=== PATIENT | female | born 1940 | race Caucasian/White ===

== ENCOUNTER 2020-08-16 14:41 | Observation (INO) ==
[2020-08-16] MEDS ORDERED: 0.9 % Sodium Chloride 1,000 ML IV ONE (15:52)
[2020-08-16] MEDS ORDERED: FLUoxetine 20 MG CAPSULE PO SCH (21:00)
[2020-08-16] MEDS ORDERED: (Doxepin Hcl 10 MG Capsule) PO SCH (21:00)
[2020-08-16] MEDS ORDERED: *HR* LORazepam 1 MG TABLET PO SCH (21:00)
[2020-08-16] MEDS: Gabapentin 300 MG CAPSULE PO SCH (21:26)
[2020-08-16] MEDS: Acetaminophen 325 MG TABLET PO PRN (22:11)
[2020-08-16] MEDS: Acyclovir 200 MG CAPSULE PO SCH (22:14)
[2020-08-17] MEDS: *HR* LORazepam 0.5 MG TABLET PO SCH ×2 (00:08→20:07)
[2020-08-17 05:23] LABS: Basophils % 0.7 %; Eosinophils # 0.1 K/mcL (0.0-0.6); Hematocrit 35.1 % (35.3-44.9); Hemoglobin 11.4 g/dL (11.5-15.4); Immature Granulocytes % 0.2 % (0-4); Lymphocytes # 1.7 K/mcL (0.6-4.6); Lymphocytes % 36.7 %; Mean Corpuscular HGB Conc 32.5 g/dL (31.6-35.5); Mean Corpuscular Hemoglobin 31.7 pg (28.0-33.3); Mean Corpuscular Volume 97.5 fL (83.0-100.0); Mean Platelet Volume 9.6 fL (9.4-12.4); Monocytes # 0.5 K/mcL (0.0-1.3); Monocytes % 10.2 %; Neutrophils # 2.3 K/mcL (1.6-8.9); Platelet Count 216 K/mcL (140-400); Red Cell Distribution Width 13.4 % (11.5-14.5); Segmented Neutrophils % 50.2 %; White Blood Count 4.6 K/mcL (4.3-11.1)
[2020-08-17 05:26] LABS: Bilirubin,Urine Negative (Negative); Blood,Urine Trace-intact (Negative); Clarity,Urine Slightly Cloudy (Clear); Glucose,Urine (UA) Normal (Normal); Ketones,Urine Negative (Negative); Leukocyte Esterase,Urine Negative (Negative); Nitrite,Urine Negative (Negative); PH,Urine 6.5 pH Units (5.0-8.0); Protein,Urine 100 mg/dL (Neg-Trace); Urobilinogen,Urine Normal (Normal)
[2020-08-17 05:30] LABS: Amorphous Sediment,Urine Few per hpf (None-Few); Color,Urine Yellow (Yellow); Squamous Epithelial Cell,Urine Few per hpf (None-Few)
[2020-08-17 05:38] LABS: Calcium 9.3 mg/dL (8.6-10.3); Magnesium 1.9 mg/dL (1.6-2.6); Potassium 4.1 mEq/L (3.5-5.1)
[2020-08-17] MEDS: Acyclovir 200 MG CAPSULE PO SCH ×2 (09:24→20:07)
[2020-08-17] MEDS: Acetaminophen 325 MG TABLET PO PRN (09:24)
[2020-08-17] MEDS: Multivit/Ca/Min/Fe/FA 1 TAB TABLET PO SCH (09:25)
[2020-08-17] MEDS: Gabapentin 300 MG CAPSULE PO SCH ×2 (09:25→20:07)
[2020-08-17] MEDS: Aspirin 325 MG TABLET PO SCH (09:25)
[2020-08-17] MEDS: *HR* LORazepam 1 MG TABLET PO SCH (09:25)
[2020-08-17] MEDS: FLUoxetine 20 MG CAPSULE PO SCH (09:25)
[2020-08-17] MEDS ORDERED: hydrALAZINE 10 MG TABLET PO ONE (09:55)
[2020-08-17] MEDS ORDERED: hydrALAZINE 10 MG TABLET PO PRN (13:55)
[2020-08-17] MEDS ORDERED: CloNIDine Patch 0.1 MG PATCH (WEEKLY) TD SCH (14:00)
[2020-08-18] MEDS: Acetaminophen 325 MG TABLET PO PRN ×2 (01:27→22:17)
[2020-08-18 04:56] LABS: Hematocrit 32.2 % (35.3-44.9); Hemoglobin 10.7 g/dL (11.5-15.4); Mean Corpuscular HGB Conc 33.2 g/dL (31.6-35.5); Mean Corpuscular Hemoglobin 32.2 pg (28.0-33.3); Mean Platelet Volume 9.4 fL (9.4-12.4); Platelet Count 187 K/mcL (140-400); Red Blood Count 3.32 M/mcL (3.82-4.97); Red Cell Distribution Width 13.2 % (11.5-14.5); White Blood Count 4.8 K/mcL (4.3-11.1)
[2020-08-18 05:20] LABS: Albumin 3.6 g/dL (3.5-5.7); Albumin/Globulin Ratio 1.6 (1.1-2.2); Bilirubin,Total 0.3 mg/dL (0.3-1.0); Calcium 8.8 mg/dL (8.6-10.3); Globulin 2.2 g/dL (2.4-3.5); Magnesium 1.8 mg/dL (1.6-2.6); Potassium 3.9 mEq/L (3.5-5.1); Total Protein 5.8 g/dL (6.4-8.9)
[2020-08-18] MEDS: Aspirin 325 MG TABLET PO SCH (08:32)
[2020-08-18] MEDS: Acyclovir 200 MG CAPSULE PO SCH ×2 (08:32→22:12)
[2020-08-18] MEDS: FLUoxetine 20 MG CAPSULE PO SCH (08:32)
[2020-08-18] MEDS: Gabapentin 300 MG CAPSULE PO SCH ×2 (08:33→22:11)
[2020-08-18] MEDS: *HR* LORazepam 1 MG TABLET PO SCH (08:33)
[2020-08-18] MEDS: Multivit/Ca/Min/Fe/FA 1 TAB TABLET PO SCH (08:33)
[2020-08-18] MEDS: hydrALAZINE 10 MG TABLET PO SCH (17:41)
[2020-08-18] MEDS: *HR* LORazepam 0.5 MG TABLET PO SCH (22:11)
[2020-08-19] MEDS: hydrALAZINE 10 MG TABLET PO SCH ×2 (00:24→08:18)
[2020-08-19] MEDS: Acetaminophen 325 MG TABLET PO PRN (05:45)
[2020-08-19] MEDS: Multivit/Ca/Min/Fe/FA 1 TAB TABLET PO SCH (08:18)
[2020-08-19] MEDS: Gabapentin 300 MG CAPSULE PO SCH (08:18)
[2020-08-19] MEDS: FLUoxetine 20 MG CAPSULE PO SCH (08:18)
[2020-08-19] MEDS: Aspirin 325 MG TABLET PO SCH (08:18)
[2020-08-19] MEDS: *HR* LORazepam 1 MG TABLET PO SCH (08:19)
[2020-08-19] MEDS: Acyclovir 200 MG CAPSULE PO SCH (08:19)
[2020-08-19 13:04] VITALS: BP 131/76
== END 2020-08-19 15:35 | disposition other institution (70) ==
LOC: EMEROOGRE 14:41 → INPGRE 14:41
PROVIDERS: ADMIT Family Medicine; ATTEND Family Medicine

== ENCOUNTER 2020-08-19 13:16 | Inpatient (IN) ==
[2020-08-19] MEDS ORDERED: FLUoxetine 20 MG CAPSULE PO SCH (21:00)
[2020-08-19] MEDS: Acetaminophen 325 MG TABLET PO PRN (22:17)
[2020-08-19] MEDS: Gabapentin 300 MG CAPSULE PO SCH (22:18)
[2020-08-19] MEDS: *HR* LORazepam 1 MG TABLET PO SCH (22:19)
[2020-08-19] MEDS: (Doxepin Hcl 10 MG Capsule) PO SCH (22:58)
[2020-08-19] MEDS: hydrALAZINE 10 MG TABLET PO SCH (23:05)
[2020-08-19] MEDS: Acyclovir 200 MG CAPSULE PO SCH (23:06)
[2020-08-20 05:01] LABS: Basophils % 0.7 %; Eosinophils # 0.1 K/mcL (0.0-0.6); Eosinophils % 2.5 %; Hematocrit 32.1 % (35.3-44.9); Hemoglobin 10.6 g/dL (11.5-15.4); Immature Granulocytes % 0.2 % (0-4); Lymphocytes # 1.4 K/mcL (0.6-4.6); Lymphocytes % 32.6 %; Mean Corpuscular Hemoglobin 31.9 pg (28.0-33.3); Mean Corpuscular Volume 96.7 fL (83.0-100.0); Mean Platelet Volume 9.6 fL (9.4-12.4); Monocytes # 0.5 K/mcL (0.0-1.3); Monocytes % 11.1 %; Neutrophils # 2.3 K/mcL (1.6-8.9); Platelet Count 206 K/mcL (140-400); Red Blood Count 3.32 M/mcL (3.82-4.97); Red Cell Distribution Width 13.4 % (11.5-14.5); Segmented Neutrophils % 52.9 %; White Blood Count 4.3 K/mcL (4.3-11.1)
[2020-08-20 05:20] LABS: Potassium 3.8 mEq/L (3.5-5.1)
[2020-08-20] MEDS: hydrALAZINE 10 MG TABLET PO SCH ×3 (06:36→20:45)
[2020-08-20] MEDS: Acetaminophen 325 MG TABLET PO PRN ×2 (06:37→16:42)
[2020-08-20] MEDS: *HR* Enoxaparin 40 MG/0.4 ML SYRINGE SQ SCH (06:38)
[2020-08-20] MEDS: Multivit/Ca/Min/Fe/FA 1 TAB TABLET PO SCH (09:59)
[2020-08-20] MEDS: *HR* LORazepam 1 MG TABLET PO SCH ×2 (09:59→20:49)
[2020-08-20] MEDS: Acyclovir 200 MG CAPSULE PO SCH ×2 (09:59→20:48)
[2020-08-20] MEDS: FLUoxetine 20 MG CAPSULE PO SCH (09:59)
[2020-08-20] MEDS: Gabapentin 300 MG CAPSULE PO SCH ×2 (09:59→20:45)
[2020-08-20] MEDS: Aspirin 325 MG TABLET PO SCH (09:59)
[2020-08-20] MEDS: (Doxepin Hcl 10 MG Capsule) PO SCH (20:51)
[2020-08-21] MEDS: Acetaminophen 325 MG TABLET PO PRN ×2 (06:40→17:01)
[2020-08-21] MEDS: hydrALAZINE 10 MG TABLET PO SCH ×3 (06:40→20:13)
[2020-08-21] MEDS: *HR* Enoxaparin 40 MG/0.4 ML SYRINGE SQ SCH (06:41)
[2020-08-21] MEDS: FLUoxetine 20 MG CAPSULE PO SCH (09:25)
[2020-08-21] MEDS: Gabapentin 300 MG CAPSULE PO SCH ×2 (09:25→20:04)
[2020-08-21] MEDS: Acyclovir 200 MG CAPSULE PO SCH ×2 (09:26→20:03)
[2020-08-21] MEDS: *HR* LORazepam 1 MG TABLET PO SCH ×2 (09:26→22:07)
[2020-08-21] MEDS: Aspirin 325 MG TABLET PO SCH (09:26)
[2020-08-21] MEDS: Multivit/Ca/Min/Fe/FA 1 TAB TABLET PO SCH (09:26)
[2020-08-21] MEDS: (Doxepin Hcl 10 MG Capsule) PO SCH (22:07)
[2020-08-22] MEDS: hydrALAZINE 10 MG TABLET PO SCH ×3 (03:43→21:50)
[2020-08-22] MEDS: *HR* Enoxaparin 30 MG/0.3 ML SYRINGE SQ SCH (06:16)
[2020-08-22] MEDS: FLUoxetine 20 MG CAPSULE PO SCH (09:37)
[2020-08-22] MEDS: Acetaminophen 325 MG TABLET PO PRN ×2 (09:37→21:53)
[2020-08-22] MEDS: Gabapentin 300 MG CAPSULE PO SCH ×2 (09:37→21:51)
[2020-08-22] MEDS: Aspirin 325 MG TABLET PO SCH (09:37)
[2020-08-22] MEDS: *HR* LORazepam 1 MG TABLET PO SCH ×2 (09:37→21:51)
[2020-08-22] MEDS: Multivit/Ca/Min/Fe/FA 1 TAB TABLET PO SCH (09:38)
[2020-08-22] MEDS: Acyclovir 200 MG CAPSULE PO SCH ×2 (09:38→21:51)
[2020-08-23] MEDS: hydrALAZINE 10 MG TABLET PO SCH ×3 (05:00→17:27)
[2020-08-23 05:01] LABS: Hematocrit 32.4 % (35.3-44.9); Hemoglobin 10.6 g/dL (11.5-15.4); Mean Corpuscular HGB Conc 32.7 g/dL (31.6-35.5); Mean Corpuscular Hemoglobin 31.7 pg (28.0-33.3); Mean Platelet Volume 9.6 fL (9.4-12.4); Platelet Count 205 K/mcL (140-400); Red Blood Count 3.34 M/mcL (3.82-4.97); Red Cell Distribution Width 13.7 % (11.5-14.5); White Blood Count 4.1 K/mcL (4.3-11.1)
[2020-08-23] MEDS: *HR* Enoxaparin 30 MG/0.3 ML SYRINGE SQ SCH (05:01)
[2020-08-23 05:15] LABS: Albumin 3.8 g/dL (3.5-5.7); Albumin/Globulin Ratio 1.8 (1.1-2.2); Bilirubin,Total 0.3 mg/dL (0.3-1.0); Calcium 9.1 mg/dL (8.6-10.3); Globulin 2.1 g/dL (2.4-3.5); Magnesium 2.1 mg/dL (1.6-2.6); Potassium 4.3 mEq/L (3.5-5.1); Total Protein 5.9 g/dL (6.4-8.9)
[2020-08-23] MEDS: *HR* LORazepam 1 MG TABLET PO SCH ×2 (09:49→21:24)
[2020-08-23] MEDS: Multivit/Ca/Min/Fe/FA 1 TAB TABLET PO SCH (09:49)
[2020-08-23] MEDS: FLUoxetine 20 MG CAPSULE PO SCH (09:50)
[2020-08-23] MEDS: Gabapentin 300 MG CAPSULE PO SCH ×2 (09:50→21:25)
[2020-08-23] MEDS: Aspirin 325 MG TABLET PO SCH (09:50)
[2020-08-23] MEDS: Acetaminophen 325 MG TABLET PO PRN ×2 (09:50→21:28)
[2020-08-23] MEDS: Acyclovir 200 MG CAPSULE PO SCH ×2 (09:50→21:24)
[2020-08-24] MEDS: hydrALAZINE 25 MG TABLET PO SCH ×2 (00:34→09:41)
[2020-08-24] MEDS ORDERED: *HR* Enoxaparin 40 MG/0.4 ML SYRINGE SQ SCH (07:00)
[2020-08-24 08:21] VITALS: BP 181/76
[2020-08-24] MEDS: Gabapentin 300 MG CAPSULE PO SCH (09:41)
[2020-08-24] MEDS: Multivit/Ca/Min/Fe/FA 1 TAB TABLET PO SCH (09:41)
[2020-08-24] MEDS: Acyclovir 200 MG CAPSULE PO SCH (09:41)
[2020-08-24] MEDS: FLUoxetine 20 MG CAPSULE PO SCH (09:41)
[2020-08-24] MEDS: Aspirin 325 MG TABLET PO SCH (09:41)
[2020-08-24] MEDS: *HR* LORazepam 1 MG TABLET PO SCH (09:41)
[2020-08-24] MEDS: hydrALAZINE 10 MG TABLET PO SCH (11:52)
== END 2020-08-24 14:03 | disposition home health service (06) | DRG 945 ==
LOC: INPGRE 15:36
PROVIDERS: ADMIT Family Medicine; ATTEND Family Medicine

== ENCOUNTER 2021-01-08 14:02 | Observation (INO) ==
[2021-01-08 14:38] LABS: Basophils % 0.5 %; Eosinophils % 0.5 %; Hematocrit 31.7 % (35.3-44.9); Hemoglobin 10.1 g/dL (11.5-15.4); Immature Granulocytes % 0.3 % (0-4); Lymphocytes # 0.9 K/mcL (0.6-4.6); Lymphocytes % 14.6 %; Mean Corpuscular HGB Conc 31.9 g/dL (31.6-35.5); Mean Corpuscular Hemoglobin 33.1 pg (28.0-33.3); Mean Corpuscular Volume 103.9 fL (83.0-100.0); Mean Platelet Volume 9.5 fL (9.4-12.4); Monocytes # 0.7 K/mcL (0.0-1.3); Monocytes % 10.9 %; Neutrophils # 4.4 K/mcL (1.6-8.9); Platelet Count 191 K/mcL (140-400); Red Blood Count 3.05 M/mcL (3.82-4.97); Red Cell Distribution Width 14.5 % (11.5-14.5); Segmented Neutrophils % 73.2 %
[2021-01-08 14:55] LABS: Calcium 9.2 mg/dL (8.6-10.3)
[2021-01-08] MEDS ORDERED: Ondansetron 4 MG/2 ML VIAL IVP PRN (15:24)
[2021-01-08] MEDS ORDERED: Ondansetron ODT 4 MG TAB.RAPDIS SL PRN (15:24)
[2021-01-08] MEDS ORDERED: MOM Conc 10 ML UD.LIQ PO PRN (15:24)
[2021-01-08] MEDS ORDERED: Mag Hydrox/Al Hydrox/Simeth 30 ML UDC PO PRN (15:24)
[2021-01-08] MEDS ORDERED: Naloxone 0.4 MG/ML INJ IVP PRN (15:24)
[2021-01-08] MEDS ORDERED: *HR* LORazepam 0.5 MG TABLET PO PRN (15:29)
[2021-01-08] MEDS ORDERED: Acetaminophen 325 MG TABLET PO PRN (15:29)
[2021-01-08] MEDS ORDERED: *HR* OxyCODONE/APAP 5/325 TABLET PO SCH (16:00)
[2021-01-08 16:14] LABS: INR 1.1
[2021-01-08] MEDS ORDERED: *HR* OxyCODONE/APAP 7.5/325 TABLET PO PRN (16:18)
[2021-01-08] MEDS ORDERED: tiZANidine 4 MG TABLET PO PRN (16:24)
[2021-01-08 16:51] LABS: Bilirubin,Urine Negative (Negative); Blood,Urine Negative (Negative); Clarity,Urine Clear (Clear); Color,Urine Yellow (Yellow); Glucose,Urine (UA) Normal (Normal); Ketones,Urine 40 mg/dL (Negative); Leukocyte Esterase,Urine Negative (Negative); Nitrite,Urine Negative (Negative); Protein,Urine >=300 mg/dL (Neg-Trace); Specific Gravity,Urine 1.025 (1.010-1.025); Urobilinogen,Urine Normal (Normal)
[2021-01-08 16:54] LABS: Squamous Epithelial Cell,Urine Few per hpf (None-Few)
[2021-01-08] MEDS: *HR* OxyCODONE/APAP 5/325 TABLET PO PRN (17:51)
[2021-01-08] MEDS: hydrALAZINE 25 MG TABLET PO SCH ×2 (17:51→21:24)
[2021-01-08] MEDS ORDERED: Melatonin 3 MG TABLET PO PRN (21:00)
[2021-01-08] MEDS: traZODone 50 MG TABLET PO SCH (21:23)
[2021-01-08] MEDS: FLUoxetine 20 MG CAPSULE PO SCH (21:23)
[2021-01-08] MEDS: Gabapentin 300 MG CAPSULE PO SCH (21:23)
[2021-01-08] MEDS: *HR* LORazepam 0.5 MG TABLET PO SCH (21:24)
[2021-01-08] MEDS: Acyclovir 200 MG CAPSULE PO SCH (21:24)
[2021-01-09] MEDS: *HR* OxyCODONE/APAP 5/325 TABLET PO PRN ×3 (05:02→19:34)
[2021-01-09] MEDS: *HR* Enoxaparin 40 MG/0.4 ML SYRINGE SQ SCH (05:02)
[2021-01-09 06:13] LABS: Hematocrit 30.1 % (35.3-44.9); Hemoglobin 9.6 g/dL (11.5-15.4); Mean Corpuscular HGB Conc 31.9 g/dL (31.6-35.5); Mean Corpuscular Hemoglobin 32.3 pg (28.0-33.3); Mean Corpuscular Volume 101.3 fL (83.0-100.0); Mean Platelet Volume 9.6 fL (9.4-12.4); Platelet Count 199 K/mcL (140-400); Red Blood Count 2.97 M/mcL (3.82-4.97); Red Cell Distribution Width 14.2 % (11.5-14.5); White Blood Count 4.8 K/mcL (4.3-11.1)
[2021-01-09 06:35] LABS: Albumin 3.3 g/dL (3.5-5.7); Albumin/Globulin Ratio 1.2 (1.1-2.2); Bilirubin,Total 0.4 mg/dL (0.3-1.0); Calcium 8.8 mg/dL (8.6-10.3); Globulin 2.7 g/dL (2.4-3.5); Magnesium 1.8 mg/dL (1.6-2.6); Phosphorous 3.2 mg/dL (2.7-4.5); Potassium 4.2 mEq/L (3.5-5.1)
[2021-01-09] MEDS: *HR* LORazepam 0.5 MG TABLET PO SCH ×3 (08:00→19:34)
[2021-01-09] MEDS: FLUoxetine 20 MG CAPSULE PO SCH ×2 (08:00→19:34)
[2021-01-09] MEDS: Acyclovir 200 MG CAPSULE PO SCH ×2 (08:00→19:35)
[2021-01-09] MEDS: Aspirin 81 MG TAB.CHEW PO SCH (08:00)
[2021-01-09] MEDS: Multivit/Ca/Min/Fe/FA 1 TAB TABLET PO SCH (08:00)
[2021-01-09] MEDS: hydrALAZINE 25 MG TABLET PO SCH ×4 (08:00→19:34)
[2021-01-09] MEDS: Gabapentin 300 MG CAPSULE PO SCH ×2 (08:00→19:33)
[2021-01-09] MEDS: Loratadine 10 MG TABLET PO SCH (08:00)
[2021-01-09] MEDS: traZODone 50 MG TABLET PO SCH (19:34)
[2021-01-10] MEDS: *HR* Enoxaparin 40 MG/0.4 ML SYRINGE SQ SCH (04:48)
[2021-01-10] MEDS: *HR* OxyCODONE/APAP 5/325 TABLET PO PRN ×2 (04:50→09:32)
[2021-01-10] MEDS: Multivit/Ca/Min/Fe/FA 1 TAB TABLET PO SCH (09:32)
[2021-01-10] MEDS: Gabapentin 300 MG CAPSULE PO SCH ×2 (09:32→22:06)
[2021-01-10] MEDS: hydrALAZINE 25 MG TABLET PO SCH ×4 (09:32→22:06)
[2021-01-10] MEDS: *HR* LORazepam 0.5 MG TABLET PO SCH ×3 (09:32→22:08)
[2021-01-10] MEDS: Acyclovir 200 MG CAPSULE PO SCH ×2 (09:32→22:06)
[2021-01-10] MEDS: Aspirin 81 MG TAB.CHEW PO SCH (09:33)
[2021-01-10] MEDS: FLUoxetine 20 MG CAPSULE PO SCH ×2 (09:33→22:07)
[2021-01-10] MEDS: Loratadine 10 MG TABLET PO SCH (09:33)
[2021-01-10] MEDS: Acetaminophen 325 MG TABLET PO PRN (17:04)
[2021-01-10] MEDS: traZODone 50 MG TABLET PO SCH (22:08)
[2021-01-11] MEDS: Acetaminophen 325 MG TABLET PO PRN (04:16)
[2021-01-11] MEDS: *HR* Enoxaparin 40 MG/0.4 ML SYRINGE SQ SCH (04:18)
[2021-01-11] MEDS: hydrALAZINE 25 MG TABLET PO SCH ×4 (08:45→19:59)
[2021-01-11] MEDS: *HR* LORazepam 0.5 MG TABLET PO SCH ×3 (08:45→20:00)
[2021-01-11] MEDS: FLUoxetine 20 MG CAPSULE PO SCH ×2 (08:45→19:59)
[2021-01-11] MEDS: Multivit/Ca/Min/Fe/FA 1 TAB TABLET PO SCH (08:45)
[2021-01-11] MEDS: Gabapentin 300 MG CAPSULE PO SCH ×2 (08:45→19:59)
[2021-01-11] MEDS: Acyclovir 200 MG CAPSULE PO SCH ×2 (08:45→19:59)
[2021-01-11] MEDS: Aspirin 81 MG TAB.CHEW PO SCH (08:46)
[2021-01-11] MEDS: Loratadine 10 MG TABLET PO SCH (08:46)
[2021-01-11] MEDS: *HR* OxyCODONE/APAP 5/325 TABLET PO PRN ×2 (14:12→19:59)
[2021-01-11] MEDS: traZODone 50 MG TABLET PO SCH (19:59)
[2021-01-12] MEDS: *HR* Enoxaparin 40 MG/0.4 ML SYRINGE SQ SCH (06:07)
[2021-01-12] MEDS: *HR* OxyCODONE/APAP 5/325 TABLET PO PRN (06:10)
[2021-01-12] MEDS: FLUoxetine 20 MG CAPSULE PO SCH (08:36)
[2021-01-12] MEDS: Acyclovir 200 MG CAPSULE PO SCH (08:36)
[2021-01-12] MEDS: Gabapentin 300 MG CAPSULE PO SCH (08:36)
[2021-01-12] MEDS: Loratadine 10 MG TABLET PO SCH (08:36)
[2021-01-12] MEDS: Multivit/Ca/Min/Fe/FA 1 TAB TABLET PO SCH (08:36)
[2021-01-12] MEDS: Aspirin 81 MG TAB.CHEW PO SCH (08:36)
[2021-01-12] MEDS: hydrALAZINE 25 MG TABLET PO SCH ×2 (08:37→13:24)
[2021-01-12] MEDS: *HR* LORazepam 0.5 MG TABLET PO SCH ×2 (08:37→14:53)
[2021-01-12 12:30] VITALS: BP 94/62
== END 2021-01-12 15:48 | disposition other institution (70) ==
LOC: INPGRE 14:02 → EMEROOGRE 14:02 → INPGRE 15:11
PROVIDERS: ADMIT Family Medicine; ATTEND Family Medicine

== ENCOUNTER 2021-01-12 14:47 | Inpatient (IN) ==
[2021-01-12] MEDS ORDERED: Mag Hydrox/Al Hydrox/Simeth 30 ML UDC PO PRN (16:40)
[2021-01-12] MEDS ORDERED: Naloxone 0.4 MG/ML INJ IVP PRN (16:42)
[2021-01-12] MEDS ORDERED: MOM Conc 10 ML UD.LIQ PO PRN (16:42)
[2021-01-12] MEDS ORDERED: Ondansetron ODT 4 MG TAB.RAPDIS SL PRN (16:43)
[2021-01-12] MEDS ORDERED: Ondansetron 4 MG/2 ML VIAL IVP PRN (16:43)
[2021-01-12] MEDS ORDERED: *HR* OxyCODONE/APAP 7.5/325 TABLET PO PRN (16:44)
[2021-01-12] MEDS: *HR* OxyCODONE/APAP 5/325 TABLET PO PRN (17:15)
[2021-01-12] MEDS: hydrALAZINE 25 MG TABLET PO SCH ×2 (17:20→21:18)
[2021-01-12] MEDS: Acyclovir 200 MG CAPSULE PO SCH (21:18)
[2021-01-12] MEDS: Gabapentin 300 MG CAPSULE PO SCH (21:18)
[2021-01-12] MEDS: traZODone 50 MG TABLET PO SCH (21:18)
[2021-01-12] MEDS: FLUoxetine 20 MG CAPSULE PO SCH (21:18)
[2021-01-12] MEDS: *HR* LORazepam 0.5 MG TABLET PO SCH (21:19)
[2021-01-13] MEDS: *HR* Enoxaparin 40 MG/0.4 ML SYRINGE SQ SCH (04:34)
[2021-01-13] MEDS: *HR* OxyCODONE/APAP 5/325 TABLET PO PRN ×2 (04:34→18:09)
[2021-01-13] MEDS: Acyclovir 200 MG CAPSULE PO SCH ×2 (07:48→20:25)
[2021-01-13] MEDS: Acetaminophen 325 MG TABLET PO PRN ×2 (07:48→20:22)
[2021-01-13] MEDS: *HR* LORazepam 0.5 MG TABLET PO SCH ×2 (07:48→20:22)
[2021-01-13] MEDS: Multivit/Ca/Min/Fe/FA 1 TAB TABLET PO SCH (07:48)
[2021-01-13] MEDS: FLUoxetine 20 MG CAPSULE PO SCH ×2 (07:48→20:20)
[2021-01-13] MEDS: hydrALAZINE 25 MG TABLET PO SCH ×4 (07:48→20:22)
[2021-01-13] MEDS: Gabapentin 300 MG CAPSULE PO SCH ×2 (07:48→20:20)
[2021-01-13] MEDS: Aspirin 81 MG TAB.CHEW PO SCH (08:53)
[2021-01-13] MEDS: Melatonin 3 MG TABLET PO PRN (20:21)
[2021-01-13] MEDS: traZODone 50 MG TABLET PO SCH (20:21)
[2021-01-14] MEDS: *HR* Enoxaparin 40 MG/0.4 ML SYRINGE SQ SCH (05:04)
[2021-01-14] MEDS: *HR* LORazepam 0.5 MG TABLET PO SCH ×2 (07:45→20:27)
[2021-01-14] MEDS: FLUoxetine 20 MG CAPSULE PO SCH ×2 (07:45→20:27)
[2021-01-14] MEDS: Multivit/Ca/Min/Fe/FA 1 TAB TABLET PO SCH (07:45)
[2021-01-14] MEDS: Acyclovir 200 MG CAPSULE PO SCH ×2 (07:45→20:27)
[2021-01-14] MEDS: Aspirin 81 MG TAB.CHEW PO SCH (07:45)
[2021-01-14] MEDS: hydrALAZINE 25 MG TABLET PO SCH ×4 (07:45→20:27)
[2021-01-14] MEDS: Gabapentin 300 MG CAPSULE PO SCH ×2 (07:45→20:27)
[2021-01-14] MEDS: Acetaminophen 325 MG TABLET PO PRN ×2 (07:54→14:16)
[2021-01-14] MEDS: *HR* OxyCODONE/APAP 5/325 TABLET PO PRN ×2 (16:44→22:56)
[2021-01-14] MEDS: traZODone 50 MG TABLET PO SCH (20:27)
[2021-01-14] MEDS: Melatonin 3 MG TABLET PO PRN (20:28)
[2021-01-15] MEDS: tiZANidine 4 MG TABLET PO PRN ×2 (00:33→05:46)
[2021-01-15] MEDS: *HR* Enoxaparin 40 MG/0.4 ML SYRINGE SQ SCH (05:43)
[2021-01-15 06:07] LABS: Basophils % 0.8 %; Eosinophils # 0.1 K/mcL (0.0-0.6); Eosinophils % 3.2 %; Hematocrit 26.8 % (35.3-44.9); Hemoglobin 8.4 g/dL (11.5-15.4); Immature Granulocytes % 0.3 % (0-4); Lymphocytes # 1.2 K/mcL (0.6-4.6); Lymphocytes % 31.7 %; Mean Corpuscular HGB Conc 31.3 g/dL (31.6-35.5); Mean Corpuscular Hemoglobin 32.4 pg (28.0-33.3); Mean Corpuscular Volume 103.5 fL (83.0-100.0); Mean Platelet Volume 9.6 fL (9.4-12.4); Monocytes # 0.5 K/mcL (0.0-1.3); Monocytes % 13.8 %; Neutrophils # 1.9 K/mcL (1.6-8.9); Platelet Count 262 K/mcL (140-400); Red Blood Count 2.59 M/mcL (3.82-4.97); Red Cell Distribution Width 13.7 % (11.5-14.5); Segmented Neutrophils % 50.2 %; White Blood Count 3.8 K/mcL (4.3-11.1)
[2021-01-15 06:30] LABS: Potassium 4.7 mEq/L (3.5-5.1)
[2021-01-15] MEDS: *HR* LORazepam 0.5 MG TABLET PO SCH ×2 (08:01→21:52)
[2021-01-15] MEDS: Aspirin 81 MG TAB.CHEW PO SCH (08:01)
[2021-01-15] MEDS: FLUoxetine 20 MG CAPSULE PO SCH ×2 (08:01→21:55)
[2021-01-15] MEDS: hydrALAZINE 25 MG TABLET PO SCH ×4 (08:02→21:54)
[2021-01-15] MEDS: Multivit/Ca/Min/Fe/FA 1 TAB TABLET PO SCH (08:02)
[2021-01-15] MEDS: Gabapentin 300 MG CAPSULE PO SCH ×2 (08:02→21:55)
[2021-01-15] MEDS: Acyclovir 200 MG CAPSULE PO SCH ×2 (08:02→21:56)
[2021-01-15] MEDS: *HR* OxyCODONE/APAP 5/325 TABLET PO PRN (10:20)
[2021-01-15] MEDS: Acetaminophen 325 MG TABLET PO PRN ×2 (15:32→22:00)
[2021-01-15] MEDS: traZODone 50 MG TABLET PO SCH (21:56)
[2021-01-15] MEDS: Melatonin 3 MG TABLET PO PRN (22:01)
[2021-01-16] MEDS: *HR* Enoxaparin 40 MG/0.4 ML SYRINGE SQ SCH (05:30)
[2021-01-16 05:50] LABS: Basophils % 0.8 %; Eosinophils # 0.1 K/mcL (0.0-0.6); Eosinophils % 3.9 %; Hematocrit 30.9 % (35.3-44.9); Hemoglobin 9.5 g/dL (11.5-15.4); Immature Granulocytes % 0.3 % (0-4); Lymphocytes # 1.1 K/mcL (0.6-4.6); Lymphocytes % 31.1 %; Mean Corpuscular HGB Conc 30.7 g/dL (31.6-35.5); Mean Corpuscular Hemoglobin 31.9 pg (28.0-33.3); Mean Corpuscular Volume 103.7 fL (83.0-100.0); Mean Platelet Volume 9.3 fL (9.4-12.4); Monocytes # 0.4 K/mcL (0.0-1.3); Monocytes % 12.3 %; Platelet Count 273 K/mcL (140-400); Red Blood Count 2.98 M/mcL (3.82-4.97); Red Cell Distribution Width 13.7 % (11.5-14.5); Segmented Neutrophils % 51.6 %; White Blood Count 3.6 K/mcL (4.3-11.1)
[2021-01-16 05:53] LABS: Neutrophils # 1.9 K/mcL (1.6-8.9)
[2021-01-16] MEDS: Aspirin 81 MG TAB.CHEW PO SCH (08:15)
[2021-01-16] MEDS: hydrALAZINE 25 MG TABLET PO SCH ×4 (08:15→20:20)
[2021-01-16] MEDS: *HR* LORazepam 0.5 MG TABLET PO SCH ×2 (08:15→20:19)
[2021-01-16] MEDS: *HR* OxyCODONE/APAP 5/325 TABLET PO PRN (08:15)
[2021-01-16] MEDS: FLUoxetine 20 MG CAPSULE PO SCH ×2 (08:15→20:20)
[2021-01-16] MEDS: Gabapentin 300 MG CAPSULE PO SCH ×2 (08:15→20:20)
[2021-01-16] MEDS: Multivit/Ca/Min/Fe/FA 1 TAB TABLET PO SCH (08:15)
[2021-01-16] MEDS: Acyclovir 200 MG CAPSULE PO SCH ×2 (08:15→20:19)
[2021-01-16 12:25] LABS: % Iron Saturation 14 % (15-50); Iron 33 mcg/dL (50-170); Transferrin 164 mg/dL (203-362)
[2021-01-16 12:44] LABS: Ferritin 220 ng/mL (10-120)
[2021-01-16] MEDS: Acetaminophen 325 MG TABLET PO PRN (14:08)
[2021-01-16] MEDS: traZODone 50 MG TABLET PO SCH (20:20)
[2021-01-16] MEDS: Melatonin 3 MG TABLET PO PRN (20:20)
[2021-01-17] MEDS: *HR* Enoxaparin 40 MG/0.4 ML SYRINGE SQ SCH (05:04)
[2021-01-17] MEDS: *HR* OxyCODONE/APAP 5/325 TABLET PO PRN ×2 (05:04→13:25)
[2021-01-17] MEDS: FLUoxetine 20 MG CAPSULE PO SCH ×2 (08:22→20:03)
[2021-01-17] MEDS: Multivit/Ca/Min/Fe/FA 1 TAB TABLET PO SCH (08:22)
[2021-01-17] MEDS: Aspirin 81 MG TAB.CHEW PO SCH (08:22)
[2021-01-17] MEDS: hydrALAZINE 25 MG TABLET PO SCH ×4 (08:22→20:03)
[2021-01-17] MEDS: Acyclovir 200 MG CAPSULE PO SCH ×2 (08:22→20:03)
[2021-01-17] MEDS: *HR* LORazepam 0.5 MG TABLET PO SCH ×2 (08:22→20:02)
[2021-01-17] MEDS: Gabapentin 300 MG CAPSULE PO SCH ×2 (08:22→20:03)
[2021-01-17 19:51] VITALS: RESP 16
[2021-01-17] MEDS: traZODone 50 MG TABLET PO SCH (20:03)
[2021-01-18] MEDS: *HR* Enoxaparin 40 MG/0.4 ML SYRINGE SQ SCH (04:43)
[2021-01-18] MEDS: Multivit/Ca/Min/Fe/FA 1 TAB TABLET PO SCH (08:34)
[2021-01-18] MEDS: Gabapentin 300 MG CAPSULE PO SCH ×2 (08:34→20:00)
[2021-01-18] MEDS: *HR* OxyCODONE/APAP 5/325 TABLET PO PRN (08:34)
[2021-01-18] MEDS: hydrALAZINE 25 MG TABLET PO SCH ×4 (08:34→20:01)
[2021-01-18] MEDS: Acyclovir 200 MG CAPSULE PO SCH ×2 (08:34→20:01)
[2021-01-18] MEDS: *HR* LORazepam 0.5 MG TABLET PO SCH ×2 (08:34→20:00)
[2021-01-18] MEDS: Aspirin 81 MG TAB.CHEW PO SCH (08:34)
[2021-01-18] MEDS: FLUoxetine 20 MG CAPSULE PO SCH ×2 (08:35→20:00)
[2021-01-18] MEDS: Acetaminophen 325 MG TABLET PO PRN (17:11)
[2021-01-18] MEDS: Melatonin 3 MG TABLET PO PRN (20:00)
[2021-01-18] MEDS: traZODone 50 MG TABLET PO SCH (20:02)
[2021-01-19] MEDS: *HR* Enoxaparin 40 MG/0.4 ML SYRINGE SQ SCH (05:35)
[2021-01-19 07:28] VITALS: BP 166/69; PULSE 64; TEMP 97.7; O2SAT 96
[2021-01-19] MEDS: Acetaminophen 325 MG TABLET PO PRN (07:59)
[2021-01-19] MEDS: hydrALAZINE 25 MG TABLET PO SCH (08:00)
[2021-01-19] MEDS: FLUoxetine 20 MG CAPSULE PO SCH (08:00)
[2021-01-19] MEDS: Aspirin 81 MG TAB.CHEW PO SCH (08:00)
[2021-01-19] MEDS: Acyclovir 200 MG CAPSULE PO SCH (08:00)
[2021-01-19] MEDS: Multivit/Ca/Min/Fe/FA 1 TAB TABLET PO SCH (08:00)
[2021-01-19] MEDS: Gabapentin 300 MG CAPSULE PO SCH (08:00)
[2021-01-19] MEDS: *HR* LORazepam 0.5 MG TABLET PO SCH (08:00)
== END 2021-01-19 12:40 | disposition home health service (06) | DRG 560 ==
LOC: INPGRE 15:58
PROVIDERS: ADMIT Family Medicine; ATTEND Family Medicine

== ENCOUNTER 2021-01-20 10:43 | Observation (INO) ==
[2021-01-20] MEDS ORDERED: Gabapentin 300 MG CAPSULE PO ONE (11:28)
[2021-01-20] MEDS ORDERED: hydrALAZINE 25 MG TABLET PO ONE (11:30)
[2021-01-20] MEDS ORDERED: *HR* LORazepam 1 MG TABLET PO ONE (11:30)
[2021-01-20] MEDS ORDERED: FLUoxetine 20 MG CAPSULE PO ONE (11:45)
[2021-01-20 11:51] LABS: Basophils % 0.6 %; Eosinophils # 0.1 K/mcL (0.0-0.6); Eosinophils % 1.7 %; Hematocrit 31.2 % (35.3-44.9); Hemoglobin 9.8 g/dL (11.5-15.4); Immature Granulocytes % 0.4 % (0-4); Lymphocytes # 0.9 K/mcL (0.6-4.6); Lymphocytes % 18.7 %; Mean Corpuscular HGB Conc 31.4 g/dL (31.6-35.5); Mean Corpuscular Hemoglobin 32.8 pg (28.0-33.3); Mean Corpuscular Volume 104.3 fL (83.0-100.0); Mean Platelet Volume 8.9 fL (9.4-12.4); Monocytes # 0.5 K/mcL (0.0-1.3); Monocytes % 10.2 %; Neutrophils # 3.3 K/mcL (1.6-8.9); Platelet Count 314 K/mcL (140-400); Red Blood Count 2.99 M/mcL (3.82-4.97); Red Cell Distribution Width 13.6 % (11.5-14.5); Segmented Neutrophils % 68.4 %; White Blood Count 4.8 K/mcL (4.3-11.1)
[2021-01-20 12:09] LABS: Albumin 3.5 g/dL (3.5-5.7); Albumin/Globulin Ratio 1.3 (1.1-2.2); Bilirubin,Total 0.2 mg/dL (0.3-1.0); Calcium 9.9 mg/dL (8.6-10.3); Globulin 2.7 g/dL (2.4-3.5); Potassium 4.9 mEq/L (3.5-5.1); Total Protein 6.2 g/dL (6.4-8.9)
[2021-01-20] MEDS ORDERED: Naloxone 0.4 MG/ML INJ IVP PRN (14:32)
[2021-01-20] MEDS ORDERED: MOM Conc 10 ML UD.LIQ PO PRN (14:32)
[2021-01-20] MEDS ORDERED: *HR* OxyCODONE Immed Rel 5 MG TABLET PO PRN (14:32)
[2021-01-20] MEDS ORDERED: Ondansetron ODT 4 MG TAB.RAPDIS SL PRN (14:32)
[2021-01-20] MEDS ORDERED: Mag Hydrox/Al Hydrox/Simeth 30 ML UDC PO PRN (14:32)
[2021-01-20] MEDS ORDERED: Ondansetron 4 MG/2 ML VIAL IVP PRN (14:32)
[2021-01-20] MEDS ORDERED: Melatonin 3 MG TABLET PO PRN (14:32)
[2021-01-20] MEDS ORDERED: Acetaminophen 325 MG TABLET PO PRN (14:37)
[2021-01-20] MEDS: *HR* LORazepam 0.5 MG TABLET PO SCH ×2 (16:27→20:13)
[2021-01-20] MEDS: Multivit/Ca/Min/Fe/FA 1 TAB TABLET PO SCH (16:28)
[2021-01-20] MEDS: Loratadine 10 MG TABLET PO SCH (16:29)
[2021-01-20] MEDS: hydrALAZINE 25 MG TABLET PO SCH ×2 (16:29→20:15)
[2021-01-20] MEDS: Aspirin Enteric Coated 81 MG Tablet PO SCH (16:29)
[2021-01-20] MEDS: FLUoxetine 20 MG CAPSULE PO SCH ×2 (16:30→20:17)
[2021-01-20] MEDS: Gabapentin 300 MG CAPSULE PO SCH ×2 (16:30→20:16)
[2021-01-20] MEDS: *HR* OxyCODONE/APAP 5/325 TABLET PO PRN (16:40)
[2021-01-20] MEDS ORDERED: traZODone 50 MG TABLET PO SCH (21:00)
[2021-01-21 05:52] LABS: Basophils % 1.1 %; Eosinophils # 0.1 K/mcL (0.0-0.6); Eosinophils % 3.2 %; Hematocrit 29.9 % (35.3-44.9); Hemoglobin 9.3 g/dL (11.5-15.4); Immature Granulocytes % 0.3 % (0-4); Lymphocytes # 1.1 K/mcL (0.6-4.6); Lymphocytes % 31.2 %; Mean Corpuscular HGB Conc 31.1 g/dL (31.6-35.5); Mean Corpuscular Hemoglobin 32.2 pg (28.0-33.3); Mean Corpuscular Volume 103.5 fL (83.0-100.0); Mean Platelet Volume 9.2 fL (9.4-12.4); Monocytes # 0.4 K/mcL (0.0-1.3); Neutrophils # 1.9 K/mcL (1.6-8.9); Platelet Count 293 K/mcL (140-400); Red Blood Count 2.89 M/mcL (3.82-4.97); Red Cell Distribution Width 13.4 % (11.5-14.5); Segmented Neutrophils % 54.2 %; White Blood Count 3.5 K/mcL (4.3-11.1)
[2021-01-21 06:10] LABS: Albumin 3.5 g/dL (3.5-5.7); Albumin/Globulin Ratio 1.7 (1.1-2.2); Bilirubin,Total 0.3 mg/dL (0.3-1.0); Calcium 9.5 mg/dL (8.6-10.3); Globulin 2.1 g/dL (2.4-3.5); Potassium 4.4 mEq/L (3.5-5.1); Total Protein 5.6 g/dL (6.4-8.9)
[2021-01-21] MEDS: *HR* Heparin 5,000 UNIT/ML VIAL SQ SCH ×2 (06:49→17:45)
[2021-01-21] MEDS: Aspirin Enteric Coated 81 MG Tablet PO SCH (08:27)
[2021-01-21] MEDS: FLUoxetine 20 MG CAPSULE PO SCH (08:27)
[2021-01-21] MEDS: *HR* LORazepam 0.5 MG TABLET PO SCH (08:27)
[2021-01-21] MEDS: Gabapentin 300 MG CAPSULE PO SCH ×2 (08:27→20:39)
[2021-01-21] MEDS: Multivit/Ca/Min/Fe/FA 1 TAB TABLET PO SCH (08:27)
[2021-01-21] MEDS: hydrALAZINE 25 MG TABLET PO SCH ×3 (08:27→20:39)
[2021-01-21] MEDS: Loratadine 10 MG TABLET PO SCH (08:27)
[2021-01-21] MEDS: *HR* OxyCODONE/APAP 5/325 TABLET PO PRN (08:32)
[2021-01-21] MEDS ORDERED: Ondansetron 4 MG/2 ML VIAL IVP PRN (14:06)
[2021-01-21] MEDS ORDERED: Ondansetron ODT 4 MG TAB.RAPDIS SL PRN (14:06)
[2021-01-21] MEDS ORDERED: Mag Hydrox/Al Hydrox/Simeth 30 ML UDC PO PRN (14:06)
[2021-01-21] MEDS ORDERED: Naloxone 0.4 MG/ML INJ IVP PRN (14:06)
[2021-01-21] MEDS ORDERED: MOM Conc 10 ML UD.LIQ PO PRN (14:06)
[2021-01-21] MEDS: traZODone 50 MG TABLET PO SCH (20:39)
[2021-01-21] MEDS: Melatonin 3 MG TABLET PO PRN (20:39)
[2021-01-21] MEDS: *HR* LORazepam 0.5 MG TABLET PO PRN (20:39)
[2021-01-22] MEDS: *HR* Heparin 5,000 UNIT/ML VIAL SQ SCH ×2 (05:30→17:54)
[2021-01-22] MEDS: hydrALAZINE 25 MG TABLET PO SCH ×3 (05:30→17:54)
[2021-01-22 06:11] LABS: Hematocrit 34.2 % (35.3-44.9); Hemoglobin 10.6 g/dL (11.5-15.4); Mean Corpuscular Hemoglobin 32.2 pg (28.0-33.3); Mean Platelet Volume 10.1 fL (9.4-12.4); Platelet Count 289 K/mcL (140-400); Red Blood Count 3.29 M/mcL (3.82-4.97); Red Cell Distribution Width 13.2 % (11.5-14.5)
[2021-01-22 06:34] LABS: Albumin 3.9 g/dL (3.5-5.7); Albumin/Globulin Ratio 1.1 (1.1-2.2); Bilirubin,Total 0.3 mg/dL (0.3-1.0); Calcium 10.4 mg/dL (8.6-10.3); Globulin 3.4 g/dL (2.4-3.5); Magnesium 2.1 mg/dL (1.6-2.6); Potassium 3.8 mEq/L (3.5-5.1); Total Protein 7.3 g/dL (6.4-8.9)
[2021-01-22] MEDS: Aspirin 325 MG TABLET PO SCH (09:40)
[2021-01-22] MEDS: Multivit/Ca/Min/Fe/FA 1 TAB TABLET PO SCH (09:40)
[2021-01-22] MEDS: Loratadine 10 MG TABLET PO SCH (09:41)
[2021-01-22] MEDS: Gabapentin 300 MG CAPSULE PO SCH ×2 (09:41→20:01)
[2021-01-22] MEDS: Melatonin 3 MG TABLET PO PRN (20:01)
[2021-01-22] MEDS: *HR* LORazepam 0.5 MG TABLET PO PRN (20:02)
[2021-01-22] MEDS: traZODone 50 MG TABLET PO SCH (20:02)
[2021-01-22] MEDS: *HR* OxyCODONE/APAP 5/325 TABLET PO PRN (20:03)
[2021-01-23] MEDS: hydrALAZINE 25 MG TABLET PO SCH ×4 (00:14→18:36)
[2021-01-23] MEDS: *HR* Heparin 5,000 UNIT/ML VIAL SQ SCH ×2 (05:58→18:36)
[2021-01-23] MEDS: Multivit/Ca/Min/Fe/FA 1 TAB TABLET PO SCH (09:12)
[2021-01-23] MEDS: Gabapentin 300 MG CAPSULE PO SCH ×2 (09:12→21:02)
[2021-01-23] MEDS: Loratadine 10 MG TABLET PO SCH (09:12)
[2021-01-23] MEDS: Aspirin 325 MG TABLET PO SCH (09:12)
[2021-01-23] MEDS: *HR* OxyCODONE/APAP 5/325 TABLET PO PRN (21:02)
[2021-01-23] MEDS: *HR* LORazepam 0.5 MG TABLET PO PRN (21:02)
[2021-01-23] MEDS: Melatonin 3 MG TABLET PO PRN (21:02)
[2021-01-23] MEDS: traZODone 50 MG TABLET PO SCH (21:02)
[2021-01-24] MEDS: hydrALAZINE 25 MG TABLET PO SCH ×3 (00:28→12:24)
[2021-01-24] MEDS: *HR* Heparin 5,000 UNIT/ML VIAL SQ SCH (06:18)
[2021-01-24] MEDS: Multivit/Ca/Min/Fe/FA 1 TAB TABLET PO SCH (08:23)
[2021-01-24] MEDS: Loratadine 10 MG TABLET PO SCH (08:23)
[2021-01-24] MEDS: Gabapentin 300 MG CAPSULE PO SCH (08:23)
[2021-01-24] MEDS: Aspirin 325 MG TABLET PO SCH (08:23)
[2021-01-24 12:36] VITALS: BP 124/54; PULSE 66; RESP 16; TEMP 97.8; O2SAT 95
== END 2021-01-24 15:35 | disposition home health service (06) ==
LOC: EMEROOGRE 10:43 → INPGRE 10:43 → EMEROOGRE 12:55
PROVIDERS: ADMIT Family Medicine; ATTEND Family Medicine